=== PATIENT | female | born 1930 | race Two or more races ===

== ENCOUNTER 2020-08-08 22:58 | Inpatient (IN) | payer OTHER, MEDICAID ==
[~2020-08-08] VITALS: Ht 170.2 cm; Wt 68.9 kg
[2020-08-09 01:35] LABS: CHLORIDE 98 mEq/L (98-107)
[2020-08-09 01:42] LABS: HEMATOCRIT. 28.5 % (36.0-48.0); HEMOGLOBIN. 9.9 g/dL (12.0-16.0); MEAN CORPUSCULAR HEMOGLOBIN 32.9 pg (28.0-32.0); MEAN CORPUSCULAR VOLUME 94.4 fL (81.0-99.0); MEAN PLATELET VOLUME 6.8 fl (7.4-10.4); PLATELET 288 x1000/uL (130-400); RED BLOOD CELL COUNT 3.01 mill/uL (4.2-5.4); RED CELL DISTRIBUTION WIDTH 12.7 % (11.6-14.6)
[2020-08-09 02:50] LABS: CLARITY URINE CLEAR (CLEAR); COLOR URINE YELLOW (YELLOW); KETONES URINE NEGATIVE (NEGATIVE); LEUKOCYTE ESTERASE URINE NEGATIVE (NEGATIVE); NITRITE URINE NEGATIVE (NEGATIVE); OCCULT BLOOD URINE NEGATIVE (NEGATIVE); PH URINE 6.5 (4.5-8.0); PROTEIN URINE NEGATIVE (NEGATIVE); SPECIFIC GRAVITY URINE 1.017 (1.005-1.030)
[2020-08-09 03:00] LABS: *BARBITURATES SCREEN URINE NEGATIVE (NEGATIVE); CANNABINOID URINE SCREEN NEGATIVE (NEGATIVE); PHENCYCLIDINE URINE SCREEN NEGATIVE (NEGATIVE)
[2020-08-09 03:01] LABS: *AMPHETAMINES SCREEN URINE NEGATIVE (NEGATIVE); *BENZODIAZEPINES SCREEN URINE NEGATIVE (NEGATIVE); *COCAINE SCREEN URINE NEGATIVE (NEGATIVE); METHADONE URINE SCREEN NEGATIVE (NEGATIVE); OPIATES URINE SCREEN PRESUMTIVE POSITIVE (NEGATIVE)
[2020-08-09 08:00] VITALS: BP 128/61
[2020-08-09 08:17] LABS: PLATELET ESTIMATE NORMAL
[2020-08-09 10:00] VITALS: BP 128/61
[2020-08-09] MEDS ORDERED: DOCUSATE SODIUM 100MG CAPSULE PO PRN (10:00)
[2020-08-09] MEDS ORDERED: CLONIDINE 0.1MG TABLET PO PRN (10:00)
[2020-08-09] MEDS ORDERED: ACETAMINOPHEN 325MG TABLET PO PRN (10:00)
[2020-08-09] MEDS ORDERED: ENOXAPARIN 40MG/0.4ML SYR SUBCUT SCH (10:00)
[2020-08-09] MEDS ORDERED: ONDANSETRON HCL 4MG/2ML INJ IV PRN (10:00)
[2020-08-09] MEDS ORDERED: IPRATROPIUM/ALBUTEROL 0.5-3(2.5)MG/3ML NEB HHN PRN (10:00)
[2020-08-09] MEDS ORDERED: MAGNESIUM/ALUMINUM HYDROXIDE/SIMETHICONE 30ML UDC PO PRN (10:00)
[2020-08-09] MEDS ORDERED: ASPI-1497 MT (11:40)
[2020-08-09] MEDS ORDERED: FERR325T6 MT (11:40)
[2020-08-09] MEDS ORDERED: POTA20TA82 MT (11:40)
[2020-08-09] MEDS ORDERED: CEPH500C2 MT (11:40)
[2020-08-09] MEDS ORDERED: HYDR-4346 PO (11:40)
[2020-08-09] MEDS ORDERED: FURO40TA5 MT (11:40)
[2020-08-09 12:00] VITALS: BP 159/66
[2020-08-09] MEDS ORDERED: VANCOMYCIN 1250MG in DEXTROSE 5% WATER 250ML IV NR (13:00)
[2020-08-09] MEDS: PIPERACILLIN/TAZOBACTAM 3.375 G in DEXTROSE 5% WATER 50 ML IV SCH ×2 (15:07→20:05)
[2020-08-09] MEDS: ENOXAPARIN 30MG/0.3ML SYR SUBCUT SCH (15:07)
[2020-08-09] MEDS: PANTOPRAZOLE SODIUM 40 MG/VIAL IV SCH (15:07)
[2020-08-09 20:00] VITALS: BP 135/67
[2020-08-10] VITALS: BP 128/70
[2020-08-10 04:00] VITALS: BP 127/71
[2020-08-10] MEDS: PIPERACILLIN/TAZOBACTAM 3.375 G in DEXTROSE 5% WATER 50 ML IV SCH ×2 (04:26→13:02)
[2020-08-10 08:00] VITALS: BP 126/66
[2020-08-10] MEDS: PANTOPRAZOLE SODIUM 40 MG/VIAL IV SCH (09:03)
[2020-08-10] MEDS: ENOXAPARIN 30MG/0.3ML SYR SUBCUT SCH (09:03)
[2020-08-10 09:51] LABS: HEMATOCRIT. 24.5 % (36.0-48.0); HEMOGLOBIN. 8.4 g/dL (12.0-16.0); MEAN CORPUSCULAR HEMOGLOBIN 32.6 pg (28.0-32.0); MEAN CORPUSCULAR VOLUME 95.3 fL (81.0-99.0); MEAN PLATELET VOLUME 7.1 fl (7.4-10.4); PLATELET 281 x1000/uL (130-400); RED BLOOD CELL COUNT 2.57 mill/uL (4.2-5.4); RED CELL DISTRIBUTION WIDTH 12.9 % (11.6-14.6)
[2020-08-10 10:13] LABS: CHLORIDE 102 mEq/L (98-107)
[2020-08-10 10:23] LABS: PHOSPHORUS 2.3 mg/dL (2.5-4.9)
[2020-08-10 12:00] VITALS: BP 132/66
[2020-08-10] MEDS: PIPERACILLIN/TAZOBACTAM 3.375 G in DEXT 5% WATER 100 ML IV SCH ×2 (13:04→18:12)
[2020-08-10] MEDS: VANCOMYCIN 750 MG PREMIX 150 ML IV SCH (13:16)
[2020-08-10 14:58] LABS: PLATELET ESTIMATE NORMAL
[2020-08-10 16:00] VITALS: BP 116/63
[2020-08-10 20:00] VITALS: BP 155/78
[2020-08-10] MEDS ORDERED: KCL 20MEQ/100ML PREMIX 100 ML IV NR (23:00)
[2020-08-11] VITALS: BP 145/66
[2020-08-11] MEDS: PIPERACILLIN/TAZOBACTAM 3.375 G in DEXT 5% WATER 100 ML IV SCH ×5 (01:25→23:29)
[2020-08-11] MEDS ORDERED: MAGNESIUM 2 G PREMIX 50 ML IV NR (02:00)
[2020-08-11] MEDS: HYDROCODONE/ACETAMINOPHEN 5/325MG TABLET PO PRN ×2 (03:19→15:44)
[2020-08-11 04:00] VITALS: BP 100/80
[2020-08-11 07:03] LABS: BASOPHILS % 0.1 % (0.0-2.0); EOSINOPHILS % 1.3 % (0.0-5.0); HEMATOCRIT. 23.9 % (36.0-48.0); HEMOGLOBIN. 8.3 g/dL (12.0-16.0); LYMPHOCYTES % 7.1 % (20.0-50.0); MEAN CORPUSCULAR HEMOGLOBIN 32.8 pg (28.0-32.0); MEAN PLATELET VOLUME 7.1 fl (7.4-10.4); MONOCYTES % 8.2 % (2.0-8.0); NEUTROPHILS % 83.3 % (40.0-76.0); PLATELET 304 x1000/uL (130-400); RED BLOOD CELL COUNT 2.52 mill/uL (4.2-5.4); RED CELL DISTRIBUTION WIDTH 13.1 % (11.6-14.6)
[2020-08-11 07:18] LABS: CHLORIDE 101 mEq/L (98-107)
[2020-08-11 08:00] VITALS: BP 104/52
[2020-08-11] MEDS: PANTOPRAZOLE SODIUM 40 MG/VIAL IV SCH (10:01)
[2020-08-11] MEDS: ENOXAPARIN 30MG/0.3ML SYR SUBCUT SCH (10:02)
[2020-08-11 12:00] VITALS: BP 133/45
[2020-08-11] MEDS: VANCOMYCIN 750 MG PREMIX 150 ML IV SCH (12:51)
[2020-08-11 16:00] VITALS: BP 100/64
[2020-08-11 20:00] VITALS: BP 128/62
[2020-08-11 21:09] LABS: VITAMIN B12 SERUM 249 pg/mL (211-911)
[2020-08-12] VITALS: BP 131/65
[2020-08-12 04:00] VITALS: BP 139/51
[2020-08-12] MEDS: PIPERACILLIN/TAZOBACTAM 3.375 G in DEXT 5% WATER 100 ML IV SCH ×3 (05:15→18:10)
[2020-08-12 08:00] VITALS: BP 138/61
[2020-08-12] MEDS: ENOXAPARIN 30MG/0.3ML SYR SUBCUT SCH (09:27)
[2020-08-12] MEDS: PANTOPRAZOLE SODIUM 40 MG/VIAL IV SCH (09:27)
[2020-08-12 12:00] VITALS: BP 138/65
[2020-08-12] MEDS ORDERED: VANCOMYCIN 750 MG PREMIX 150 ML IV SCH (12:00)
[2020-08-12 14:50] VITALS: BP 19/139
== END 2020-08-12 17:50 | disposition home health service (06) | DRG 70 ==
LOC: ER 22:58 → 8WST 08-09 05:12 → ENRESERV 08-09 07:38
PROVIDERS: ADMIT Internal Medicine; ATTEND Internal Medicine
DX: G93.41 Metabolic encephalopathy (principal); E43 Unspecified severe protein-calorie malnutrition; S42.202A Unspecified fracture of upper end of left humerus, initial encounter for closed fracture; E87.1 Hypo-osmolality and hyponatremia; R65.10 Systemic inflammatory response syndrome (SIRS) of non-infectious origin without acute organ dysfunction; D64.9 Anemia, unspecified; E83.42 Hypomagnesemia; E87.6 Hypokalemia; R32 Unspecified urinary incontinence; R74.01 Elevation of levels of liver transaminase levels; Z68.23 Body mass index [BMI] 23.0-23.9, adult; Z91.81 History of falling
CPT/HCPCS: 36415; 71045; 80048; 80053; 80076; 80202; 80305; 81003; 82607; 83735; 84100; 84145; 84443; 85025; 93005; 93970; 97162; 99285; A6261; C1893; C9113; J1650; J2543; J3370; J3475; J3480; J7040; J7060